=== PATIENT | female | born 1935 | race Caucasian/White ===

== ENCOUNTER → 2017-04-03 12:46 | Outpatient (CLI) | payer MEDICARE, OTHER | END | disposition home or self-care (01) | LOC: D.RAD 12:46 | DX: R05 Cough (principal) ==

== ENCOUNTER 2019-02-01 14:35 | Emergency (ER) | payer MEDICARE, OTHER ==
[~2019-02-01] VITALS: Ht 167.6 cm; Wt 68.2 kg
[2019-02-01 14:37] VITALS: Ht 167.6 cm; Wt 68.2 kg
[2019-02-01] MEDS ORDERED: GABAPENTIN100 MG PO (14:39)
[2019-02-01] MEDS ORDERED: TESSALON PERLE100 MG PO (14:39)
[2019-02-01] MEDS ORDERED: REQUIP0.25 MG PO (14:40)
[2019-02-01] MEDS ORDERED: LIPITOR20 MG PO (14:40)
[2019-02-01] MEDS ORDERED: CYCLOBENZAPRINE5 MG PO (14:42)
[2019-02-01] MEDS ORDERED: ELAVIL25 MG PO (14:42)
[2019-02-01] MEDS ORDERED: ATARAX 25 MG TA25 MG PO (14:43)
[2019-02-01] MEDS ORDERED: VOLTAREN75 MG PO (15:50)
[2019-02-01 16:24] VITALS: BP 132/78
== END 2019-02-01 16:25 | disposition home or self-care (01) ==
LOC: D.ER 14:35
DX: S70.02XA Contusion of left hip, initial encounter (principal); W18.30XA Fall on same level, unspecified, initial encounter; Y93.89 Activity, other specified; Y92.019 Unspecified place in single-family (private) house as the place of occurrence of the external cause; M25.552 Pain in left hip

== ENCOUNTER → 2020-04-25 16:09 | Outpatient (CLI) | payer MEDICARE, OTHER ==
[2019-02-01 14:37] VITALS: BMI 24.2
[~2020-04-25 16:09] MED LIST: ATARAX 25 MG TA25 MG PO; CYCLOBENZAPRINE5 MG PO; ELAVIL25 MG PO; GABAPENTIN100 MG PO; LIPITOR20 MG PO; REQUIP0.25 MG PO; TESSALON PERLE100 MG PO; VOLTAREN75 MG PO
== END | disposition home or self-care (01) ==
LOC: D.RAD 16:09
PROVIDERS: ATTEND Emergency Medicine
DX: M25.562 Pain in left knee (principal); G89.29 Other chronic pain